=== PATIENT | female | born 1990 | race Caucasian/White ===

== ENCOUNTER 2019-11-03 18:02 | Emergency (ER) | payer BC, OTHER ==
[2019-11-03 18:10] VITALS: BP 107/67; PULSE 78; RESP 18; TEMP 98
--- NOTE | 2019-11-03 18:27 | ED ---
Fall HPI - General Chief Complaint: Fall Stated Complaint: Fall Foot injury Time Seen by Provider: 11/03/19 18:12 Source: patient, RN notes reviewed Mode of arrival: ambulatory Limitations: no limitations - History of Present Illness Initial Comments: This a 29-year-old female presents emergency Department with chief complaint of bilateral ankle foot pain. Patient states that she hurt her dogs barking so she ran outside and forgot That there was a drop off. Patient states that she (her right foot injuring her right foot at this time. She states then she was hobbling and twisted her left ankle. Patient states that her foot and ankle are bruised, swollen and painful. Patient states his happened approximately 3 hours ago no head injury no loss conscious. - Related Data Previous Rx's Medication Instructions Recorded Ibuprofen [Motrin] 600 mg PO Q8HR PRN #20 tab 11/03/19 Allergies Allergy/AdvReac Type Severity Reaction Status Date / Time No Known Allergies Allergy Verified 11/03/19 18:06 Review of Systems ROS Statement: Those systems with pertinent positive or pertinent negative responses have been documented in the HPI. ROS Other: All systems not noted in ROS Statement are negative. Past Medical History Additional Past Medical History / Comment(s): Restless leg syndrome History of Any Multi-Drug Resistant Organisms: None Reported Past Surgical History: Tonsillectomy, Tubal Ligation Past Psychological History: Anxiety, Depression, PTSD Smoking Status: Current every day smoker Past Alcohol Use History: Occasional Past Drug Use History: None Reported General Exam Limitations: no limitations General appearance: alert, in no apparent distress Head exam: Present: atraumatic, normocephalic, normal inspection Neck exam: Present: normal inspection, full ROM. Absent: tenderness, meningismus, lymphadenopathy Respiratory exam: Present: normal lung sounds bilaterally. Absent: respiratory distress, wheezes, rales, rhonchi, stridor Cardiovascular Exam: Present: regular rate, normal rhythm, normal heart sounds. Absent: systolic murmur, diastolic murmur, rubs, gallop, clicks Extremities exam: Present: other (Right foot there is tenderness over the fourth metatarsal region, there is no ankle tenderness there is no obvious deformity there is mild swelling, neurovascular intact, left ankle there is moderate tenderness in the lateral portion no medial malar tenderness no laxity noted full range of motion nontender foot nontender proximal tib-fib region) Neurological exam: Present: alert, oriented X3 Skin exam: Present: warm, dry, intact, normal color. Absent: rash Course Vital Signs 11/03/19 18:07 Temperature 98 F Pulse Rate 78 Respiratory 18 Rate Blood Pressure 107/67 O2 Sat by Pulse 100 Oximetry Medical Decision Making - Medical Decision Making X-rays are negative for acute osseous lesion. Patient has a left ankle sprain right foot sprain. Patient discharged in stable condition. Disposition Clinical Impression: Fall, Left ankle sprain, Right foot sprain Disposition: HOME SELF-CARE Condition: Stable Instructions (If sedation given, give patient instructions): Ankle Sprain (ED), Foot Sprain (ED) Additional Instructions: Please return to the Emergency Department if symptoms worsen or any other concerns. Prescriptions: Ibuprofen [Motrin] 600 mg PO Q8HR PRN #20 tab PRN Reason: Pain Is patient prescribed a controlled substance at d/c from ED?: No Referrals: Hiren Darnell MD [Primary Care Provider] - 1-2 days Time of Disposition: 19:05
--- NOTE | 2019-11-03 19:00 | XR ---
EXAMINATION TYPE: XR foot complete RT DATE OF EXAM: 11/03/2019 COMPARISON: NONE HISTORY: Fall. Pain. TECHNIQUE: 3 views FINDINGS: Metatarsals are intact. I see no fracture nor dislocation. IMPRESSION: Negative right foot exam. No fracture.
--- NOTE | 2019-11-03 19:01 | XR ---
EXAMINATION TYPE: XR ankle complete LT DATE OF EXAM: 11/03/2019 COMPARISON: NONE HISTORY: Pain TECHNIQUE: 3 views FINDINGS: Ankle mortise is anatomic. I see no fracture nor dislocation. Joint spaces are normal. Soft tissues appear normal. IMPRESSION: Negative left ankle exam.
== END 2019-11-03 19:19 | disposition home or self-care (01) ==
LOC: EC 18:02
DX: S93.402A Sprain of unspecified ligament of left ankle, initial encounter (principal); S93.601A Unspecified sprain of right foot, initial encounter; F17.200 Nicotine dependence, unspecified, uncomplicated; W19.XXXA Unspecified fall, initial encounter; Y92.009 Unspecified place in unspecified non-institutional (private) residence as the place of occurrence of the external cause
CPT/HCPCS: 73610; 73630; 99283; 29515; L4350